=== PATIENT | male | born 1990 | race Caucasian/White ===

== ENCOUNTER 2017-08-24 21:53 | Emergency (ER) | payer BC ==
[~2017-08-24] VITALS: Ht 180.3 cm; Wt 89.8 kg
--- NOTE | 2017-08-24 22:00 | NUR ---
BBRA 39; "SMOKED HEROIN" AND DIDNT FEEL GOOD. PATIENT A/OX 4. BREATHING EVEN AND UNLABORED. NO SOB. VITALS STABLE. SAFETY AND COMFORT MEASURES IN PLACE. AWAITING MD ORDERS.
[2017-08-25] MEDS ORDERED: ONDANSETRON HCL/PF 4 MG/2 ML VIAL ONE (00:40)
[2017-08-25] MEDS ORDERED: ONDANSETRON HCL/PF 4 MG/2 ML VIAL IV ONE (01:00)
--- NOTE | 2017-08-25 01:40 | NUR ---
IV removed. Catheter intact and site benign. Pressure and 4x4 applied to site. No bleeding noted. Patient discharged to home in stable condition. Written and verbal after care instructions given. Patient verbalizes understanding of instruction.
[2017-08-25 01:46] VITALS: BP 138/76
== END 2017-08-25 01:40 | disposition home or self-care (01) ==
LOC: ER 21:55
DX: T40.1X1A Poisoning by heroin, accidental (unintentional), initial encounter (principal); R79.89 Other specified abnormal findings of blood chemistry; Z88.1 Allergy status to other antibiotic agents; Z88.8 Allergy status to other drugs, medicaments and biological substances; Y92.89 Other specified places as the place of occurrence of the external cause
CPT/HCPCS: 73130; 82962 ×2; 96374; 99284; A4606; J2405; Z7610

== ENCOUNTER 2018-01-16 02:55 | Emergency (ER) | payer SELFPAY ==
[~2018-01-16] VITALS: Ht 180.3 cm; Wt 81.6 kg
[2018-01-16 02:56] VITALS: BP 154/84
== END 2018-01-16 04:22 | disposition home or self-care (01) ==
LOC: ER 02:57
DX: F11.10 Opioid abuse, uncomplicated (principal); G93.40 Encephalopathy, unspecified; Z88.1 Allergy status to other antibiotic agents; Z88.8 Allergy status to other drugs, medicaments and biological substances
CPT/HCPCS: 99283; A4606; Z7610